=== PATIENT | female | born 1995 | race Caucasian/White ===

== ENCOUNTER 2024-06-05 21:25 | Emergency (ER) | payer OTHER ==
[~2024-06-05] VITALS: Ht 157.5 cm; Wt 122.5 kg
[2024-06-05 21:28] VITALS: PULSE 113; RESP 18; TEMP 98.7; O2SAT 100
[2024-06-05] MEDS ORDERED: MEDROL4 M2 PO (21:33)
[2024-06-05] MEDS ORDERED: VALTREX1000 MG PO (21:33)
== END 2024-06-05 21:51 | disposition home or self-care (01) ==
LOC: ER 21:29
DX: B02.9 Zoster without complications (principal); J45.909 Unspecified asthma, uncomplicated
CPT/HCPCS: 99283